=== PATIENT | female | born 1960 | race Caucasian/White ===

== ENCOUNTER 2024-11-25 12:57 | Outpatient (AMB) | payer MEDICARE, MEDICAID, SELFPAY ==
--- NOTE | 2024-11-25 13:15 | A.OFFVIS_ITS ---
Vital Signs 11/25/24 13:17 Height 4 ft 11 in Weight 220 lb BMI 44.4 BP 124/72 Intake Visit Reasons: New patient annual/DO NOT RS Intake Note: no concerns Hand Carver Required: No Information Interpreted: non-clinical & clinical Internal Grinding Machine Operator: Internal Grinding Machine Operator Present (Shilpa GREENWOOD) Accompanied by: Employee Allergies ibuprofen [From Advil] Allergy (Intermediate, Verified 11/25/24 13:22) Hives Post menopausal: Yes HPI Comments Details: Presenting for annual exam. No complaints. Last Pap/HPV was many years ago Last Mammogram was 3 months ago at [place] [facility] according to the patient that her caregiver, results were negative, no records available No previous screening Colonoscopy No previous DEXA scan PFSH Medical History (Updated 11/25/24 @ 13:58 by Marcial Mercedes MD) Hyperlipidemia Surgical History (Updated 11/25/24 @ 13:27 by Shilpa Thao CMA) Hx of breast biopsy Hx of right knee surgery Social History (Updated 11/25/24 @ 13:29 by Shilpa Thao CMA) Household Members: Caregiver Housing: House Alcohol intake: never Patient Tobacco Use Status: Never used Tobacco Current occupational status: disabled Sexually active: No Sexual orientation: Straight/Heterosexual Gender identity: Female Female Reproductive History Menstrual Menopause type: natural Total pregnancies: 0 Review of Systems Const All systems reviewed & are unremarkable except as noted in HPI and below Card Reports as per HPI Resp Reports as per HPI GI Reports as per HPI and Reports no additional complaints Reports as per HPI Physical Exam Vital Signs: Last Vital Signs BP 124/72 11/25/24 13:17 BMI result Body Mass Index 44.4 Const General: cooperative, healthy appearing and comfortable Chest Chest palpation & inspection: normal inspection of the chest and normal palpation of entire chest wall Breast/axilla inspection: normal inspection of the breasts and normal inspection of the axillae Breast/axilla palpation: normal palpation of the breasts, normal palpation of the axillae and no axillary lymphadenopathy Resp Effort & Inspection: normal respiratory effort Auscultation: clear to auscultation bilaterally Percussion: percussion normal Cardio Palpation: normal PMI Rate: regular rate Rhythm: regular rhythm Heart sounds: no murmurs and no rubs Peripheral pulses: Peripheral pulses 2+ throughout GI Inspection: Yes normal to inspection Palpation (GI): Soft to palpation, nontender, no guarding, not rigid and No hepatosplenomegaly present Percussion: Yes normal to percussion Auscultation: normal bowel sounds Rectal Exam - Female: deferred General: Yes bladder normal to palpation External Female Exam: lesion (Left labia majora lesion) Speculum Exam - Vagina: normal appearance of the vagina, normal palpation, normal vaginal discharge and not erythematous Speculum Exam - Cervix: normal appearance of the cervix and normal palpation Bimanual exam- vagina & uterus: normal bimanual exam, normal palpation, uterine size normal, bladder normal to palpation, consistency normal and normal palpation Bimanual Exam- Adnexa, other: normal adnexae, no masses and no tenderness Assessment & Plan Assessment & Plan (1) Well woman exam: Code(s): Z01.419 - Encounter for gynecological examination (general) (routine) without abnormal findings Category: Medical Plan: Co testing not indicated since the patient 's age is above 65 with no history of abnormal Pap smears last 25 years. Counseled the patient about the recommended dietary allowance of 1200 mg of Calcium & 800 IU of vitamin D. Instructions given the patient to schedule next screening Mammogram in 9 months and to send the previous mammogram report to our office. Referred her for screening colonoscopy done. Will order DEXA scan . The patient was instructed to perform monthly self-breast exams and to schedule a 2 week DEXA scan follow-up appointment and an annual exam in a year; All questions answered and the patient verbalized understanding. (2) Vulvar lesion: Comment: Left-sided Code(s): N90.89 - Other specified noninflammatory disorders of vulva and perineum Category: Medical Plan: Discussed with the patient the finding on pelvic exam left labia majora lesion, recommended biopsy. Instructions given to patient to schedule vulvar biopsy to rule out RAIZA. All questions answered, the patient verbalized understanding Orders: Orders XR DEXA axial skeleton Today Z78.0 - Asymptomatic menopausal state Referrals Gastroenterology Referral Z12.11 - Encounter for screening for malignant neoplasm of colon Coding Level of Care Code New Pt Prev Care >65yr (17441) Diagnoses Well woman exam Z01.419 Vulvar lesion N90.89
[2024-11-25 13:17] VITALS: BP 124/72; BMI 44.4
== END 2024-11-25 14:05 | disposition home or self-care (01) ==
PROVIDERS: PCP Internal Medicine; Referring Provider Obstetrics & Gynecology; Visit Provider Obstetrics & Gynecology
DX: Z01.419 Encounter for gynecological examination (general) (routine) without abnormal findings (principal); N90.89 Other specified noninflammatory disorders of vulva and perineum
CPT/HCPCS: G0101

== ENCOUNTER 2024-11-25 12:57 | Outpatient (REF) | payer MEDICARE, MEDICAID, SELFPAY ==
[2024-12-02 14:02] LABS: HPV Genotype 16 Negative (Negative); HPV Genotype 18 Negative (Negative); HPV High Risk Positive (Negative)
== END 2024-11-25 12:58 | disposition home or self-care (01) ==
LOC: HO.LNP 12:57
PROVIDERS: PCP Internal Medicine; Visit Provider Obstetrics & Gynecology
DX: Z01.419 Encounter for gynecological examination (general) (routine) without abnormal findings (principal); Z11.51 Encounter for screening for human papillomavirus (HPV); N90.89 Other specified noninflammatory disorders of vulva and perineum
CPT/HCPCS: 87626; 88175; G0101

== ENCOUNTER 2025-02-03 11:35 | Outpatient (AMB) | payer MEDICARE, MEDICAID, SELFPAY ==
--- NOTE | 2025-02-03 11:54 | MHC.AMNUTRGE ---
Intake Visit Reasons: Vulva Biopsy/colpo Allergies ibuprofen [From Advil] Allergy (Intermediate, Verified 02/03/25 11:55) Hives Nutrition BS Monitoring Most Recent Diabetes Results: No Access to Confidential Data PFSH Medical History (Updated 11/25/24 @ 13:58 by Marcial Mercedes MD) Hyperlipidemia Surgical History (Updated 11/25/24 @ 13:27 by Shilpa Thao CMA) Hx of breast biopsy Hx of right knee surgery Social History (Updated 11/25/24 @ 13:29 by Shilpa Thao CMA) Household Members: Caregiver Housing: House Alcohol intake: never Patient Tobacco Use Status: Never used Tobacco Current occupational status: disabled Sexual orientation: Straight/Heterosexual Gender identity: Female Coding
[2025-02-03 12:07] VITALS: BMI 44.4
--- NOTE | 2025-02-03 12:07 | A.OFFVIS_ITS ---
Vital Signs 02/03/25 12:07 Height 4 ft 11 in Weight 220 lb BMI 44.4 Intake Visit Reasons: Vulva Biopsy/colpo Route Delivery Supervisor Required: No Information Interpreted: non-clinical & clinical Resort Keeper: Resort Keeper Present (Shilpa GREENWOOD) Accompanied by: Self / Same As Patient Allergies ibuprofen [From Advil] Allergy (Intermediate, Verified 02/03/25 12:08) Hives HPI Comments Details: Presenting for vulvar biopsy PFSH Medical History (Updated 11/25/24 @ 13:58 by Marcial Mercedes MD) Hyperlipidemia Surgical History (Updated 11/25/24 @ 13:27 by Shilpa Thao CMA) Hx of breast biopsy Hx of right knee surgery Social History (Updated 11/25/24 @ 13:29 by Shilpa Thao CMA) Household Members: Caregiver Housing: House Alcohol intake: never Patient Tobacco Use Status: Never used Tobacco Current occupational status: disabled Sexual orientation: Straight/Heterosexual Gender identity: Female Physical Exam Vital Signs: BMI result Body Mass Index 44.4 Office 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 3 cc of lidocaine was used for anesthesia at the left vulvar lesion area ; using scissors and pickup the left vulvar lesion was biopsied. Pressure was used for h emostasis. The patient tolerated the procedure well. Discharge Instructions: The patient was instructed to schedule an appointment in 2 weeks for follow-up and to call if temp>100.4, area of the biopsy redness or pain, nausea/vomiting. This note was generated with a voice recognition program. Some errors may have been overlooked during the review of this note. Sometimes these errors may affect the content or meaning of a given sentence. [id number] of Vulva/Perineum Procedure code (CPT) selection complete Assessment & Plan Assessment & Plan (1) Vulvar lesion: Comment: Left-sided Code(s): N90.89 - Other specified noninflammatory disorders of vulva and perineum Category: Medical Plan: Left vulvar biopsy done, see procedure note Orders: Orders AMB ENTERPRISE SYSTEMS ADMINISTRATOR Biopsy Today N90.89 - Other specified noninflammatory disorders of vul va and perineum Coding Level of Care Code Procedure Only Diagnoses Vulvar lesion N90.89 CPT Codes ENTERPRISE SYSTEMS ADMINISTRATOR Biopsy - CPT: 61583-Mwlaqw of Vulva/Perineum ([id number])
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
== END 2025-02-03 12:30 | disposition home or self-care (01) ==
LOC: HO.HWS 11:35
PROVIDERS: PCP Internal Medicine; Visit Provider Obstetrics & Gynecology
DX: N90.89 Other specified noninflammatory disorders of vulva and perineum (principal)
CPT/HCPCS: 56605

== ENCOUNTER 2025-02-03 11:35 | Outpatient (REF) | payer MEDICARE, MEDICAID, SELFPAY | END 2025-02-03 11:36 | disposition home or self-care (01) | LOC: HO.LNP 11:35 | PROVIDERS: PCP Internal Medicine; Visit Provider Obstetrics & Gynecology | DX: N90.89 Other specified noninflammatory disorders of vulva and perineum (principal) | CPT/HCPCS: 56605; 88305; 88312 ==

== ENCOUNTER → 2025-02-10 15:00 | Outpatient (BNVA) | payer MEDICARE, MEDICAID, SELFPAY | PROVIDERS: PCP Internal Medicine; Visit Provider Obstetrics & Gynecology | DX: Z13.89 Encounter for screening for other disorder (principal) ==

== ENCOUNTER 2025-02-11 11:57 | Outpatient (AMB) | payer MEDICARE, MEDICAID, SELFPAY ==
--- NOTE | 2025-02-11 11:58 | A.OFFVIS_ITS ---
Intake Visit Reasons: biopsy results Allergies ibuprofen [From Advil] Allergy (Intermediate, Verified 02/03/25 12:08) Hives HPI Comments Details: The patient is scheduled a telehealth visit to for follow-up post vulvar biopsy which showed the following: Vulva, left, biopsy: Squamous hyperplasia with spongiosis and reactive changes; no atypia identified; no fungi seen PFSH Medical History Hyperlipidemia Surgical History Hx of breast biopsy Hx of right knee surgery Social History Household Members: Caregiver Housing: House Alcohol intake: never Patient Tobacco Use Status: Never used Tobacco Current occupational status: disabled Sexual orientation: Straight/Heterosexual Gender identity: Female Review of Systems Const All systems reviewed & are unremarkable except as noted in HPI and below Reports as per HPI and Reports no additional complaints GI Reports no additional complaints Reports no additional complaints Telehealth Telehealth Telehealth Platform: [employer] Location of provider rendering services: practice address Location of patient: address on file Patient Identification confirmed using: Name, : Yes Telehealth method: video Patient verbally consented to treatment: Yes Patient verbally consented to billing insurance company: Yes Patient informed of any privacy concerns related to visit: Yes Minutes spent on Phone/Video with Pt.: 2 Assessment & Plan Assessment & Plan (1) Squamous cell hyperplasia of vulva: Code(s): N90.69 - Other specified hypertrophy of vulva Category: Medical Plan: Discussed with the patient the results the pathology, risk of progression to cancer Counseled the patient on how to stop the ?itch-scratch cycle,? the following information were discussed with the patient regarding vulvar care and hygiene: Avoid baby wipes on anti-septic so but the fluid, scented toilet paper, condoms, contraceptive creams or gels, personal lubricant, nylon underwear, specific laundry detergents, shaving, latex products, sanitary products, soaps, oils, topical agent . In addition recommended to the patient to use the following: Mild soaps, avoiding it on the vulva, cleanse of out with water only, gently pat the vulva dry after bathing, fly preservative-free, unscented or fragrance free emollients to hold the moisture in the skin, use Trice care bottles to rinse after urination, with 100% cotton, and scented fragments free menstrual pads use adequate lubricant for intercourse. Will prescribe a medium-potency, Triamcinolone acetonide 0.1% cream to be used 1-2 times daily for 4 weeks and if it does not work, instructed the patient to call back will send the prescription for clobetasol 0.05%, a high-potency topical corticosteroid ointment , and oral antipruritic medication hydroxyzine 25 mg p.o. Q 6-8 p.r.n. Instructions given the patient to self inspect and to report any nonhealing ulcers or hard perineal areas. All questions answered, the patient verbalized understanding. I spent a total of 20 minutes reviewing the chart, talking to the patient via video and documenting in the medical record. Medications: New triamcinolone acetonide 0.1% Apply to the affected area twice a day for 4 weeks 1 appl topical BID 4 weeks 80 grams 0RF Coding Level of Care Code Tele Est Pt Level 3 (85319) Diagnoses Squamous cell hyperplasia of vulva N90.69
--- OUTSIDE RECORDS SUMMARY | 2025-02-11 14:06 | XMS_ITS | Clinical Summary ---
Author Organization [facility] Address [address] [place] [address] Phone Care Team Providers Care Legal Stenographer Name Role Phone Antonio Webb DO Primary Care Provider [phone] Allergies Active Allergy Reactions Criticality Noted Date [...] Type Department Care Team Description 02/03/2025 [address] [facility] [address] [facility] [address] [place] [address] Charly Logan MD pt needs labs before 04/09/25 TAVR f/u visit with [facility] 02/03/2025 Telephone [facility] [address] [facility] [address] [place] [address] Charly Logan MD ZioPatch - [phone] (Ok to Book) 01/22/2025 Telephone [facility] [address] [facility] [address] [place] [address] Antonio Webb, DO Medical Records 01/22/2025 Telephone [facility] [address] [facility] [address] [place] [phone] Antonio Webb, DO Medical Records 01/19/2025 9:40 AM EDT Office Visit [facility] [address] [place] [phone] Lidia Schroeder NP Severe aortic stenosis (Primary Dx) 12/29/2024 [address] [facility] [address] [place] [address] Antonio Webb, DO Medical Records 12/25/2024 Telephone [facility] - [address] [place] [phone] Marvel Ashley MD Appointment (Possible appointment ) 12/17/2024 9:30 AM EDT - 12/17/2024 10:30 AM EDT Surgery [facility] Cardiac Tank P[employer] [address] [place] [phone] Charly Logan MD Left heart cath [64151 (CPT??)] 12/17/2024 8:44 AM EDT - 12/17/2024 4:25 PM EDT Hospital Encounter [facility] Cardiac [facility] [address] [place] [phone] Charly Logan MD Severe aortic stenosis Discharge Disposition: Home-Health Care Svc 11/30/2024 Telephone [facility] Cardiology [facility] [address] [facility] [address] [place] [phone] Charly Logan MD from Last 3 Months Surgical History Surgery Date Site/Laterality Comments OTHER SURGICAL HISTORY PROCEDURE: ME HYSTEROSCOPY REMOVAL LEIOMYOMATA OTHER SURGICAL HISTORY PROCEDURE: ME DILATION & CURETTAGE DX&/THER NONOBSTETRIC KNEE SURGERY [...] on it as of July 2018. Through [facility] breast specialists. Allergic rhinitis 10/09/2018 DX:Allergic [...] :UTI (urinary tract infection) Colitis DX:Colitis Sepsis ([facility] V24, [facility] V28) DX:Sepsis ([facility]) Social History Tobacco Use Types Packs/Day [...] Description 02/18/2025 2:10 PM EDT Office Visit [facility] Cardiology [facility] [address] [facility] [address] [place] [phone] Jonathon Bowman NP [address] [place] [address] [address] [place] [address] 02/23/2025 8:00 AM EDT Ancillary Procedure [facility] Cardiology [facility] - [address] [place] [phone] 04/08/2025 10:00 AM EDT Office Visit [facility] Hematology Oncology [address] [place] [phone] Noah Trivedi MD [address] [place] [phone] 04/09/2025 3:40 PM EDT Office Visit [facility] [address] [place] [phone] Jonathon Bowman NP [address] [place] [address] [address] [place] [address] Health Maintenance Due Date Last Done Comments [...] this topic Medical Devices Implanted Type Area Rubber Thread Spooler Device Identifier Shelf Expiration Date Model / Serial / Lot System Perclose Proglide 6f - [id number] - [id number] Implanted:Qty: 1 on 12/17/2024 by Cahrly Logan MD at [facility] Vascular Closure Devices N/A: Groin [employer] [facility] [id number] 07/09/2026 [id number] / [id number] / [id number] Procedures Procedure Name Priority Date/Time Associated [...] AUTO DIFFERENTIAL Routine 12/01/2024 10:38 AM EDT LIPID PANEL WITH REFLEX TO DIRECT LDL Routine 11/10/2024 10:58 AM EST Hyperlipemia Myxedema heart disease from Last 3 Months or Most Recently Relevant to Health Maintenance Results * LEFT HEART CATH (12/17/2024 11:46 [...] of the right coronary artery with the Mobile catheter but eventually patient developed spasm and [...] management of aortic stenosis. Charly Logan MD [facility]. Marvel Ashley MD CV CARDIAC CATH PROCEDURES Final Result * (ABNORMAL) POCT venous basic metabolic profile, (12/17/2024 9:29 AM EDT) [facility] Glucose Venous POCT 104(H) 70 - 100 mg/dL 12/17/2024 10:23 AM [facility] Sodium Venous POCT 141 135 - 145 mmol/L 12/17/2024 10:23 AM [facility] Potassium Venous POCT 4.4 3.5 - 5.5 mmol/L 12/17/2024 10:23 AM [facility] Chloride Venous POCT 103 96 - 110 mmol/L 12/17/2024 10:23 AM [facility] TCO2 Venous POCT 27 21 - 32 mmol/L 12/17/2024 10:23 AM [facility] BUN Venous POCT 16 5 - 25 mg/dL 12/17/2024 10:23 AM EDT [facility] Creatinine Venous POCT 0.9 0.5 - 1.1 mg/dL 12/17/2024 10:23 AM EDT [facility] Ionized Calcium Venous POCT 4.60 4.50 - 5.30 mg/dL 12/17/2024 10:23 AM EDT [facility] Hemoglobin Venous POCT 12.6 11.5 - 16.0 g/dL 12/17/2024 10:23 AM EDT [facility] Hematocrit Venous POCT 37 35 - 47 % 12/17/2024 10:23 AM EDT [facility] Blood Venous blood specimen / Unknown 12/17/2024 9:29 AM EDT 12/17/2024 10:24 AM EDT us Charly Logan MD LAB POINT OF CARE TE ST DOCKED DEVICE UNSOLICITED RESULTS Final Result [facility] [address] [place] [address], [place] [phone] * ECG 12 lead - Procedural (No Charge) (12/17/2024 9:27 AM EDT) Ventricular Rate ECG 92 BPM GEMUSE Atrial Rate 92 BPM GEMUSE P-R Interval 142 ms GEMUSE QRS Duration 84 ms GEMUSE Q-T Interval 368 ms GEMUSE QTc 455 ms GEMUSE P Wave Tobias 59 degrees GEMUSE R Tobias -11 degrees GEMUSE T Tobias 132 degrees GEMUSE ECG Interpretation Normal sinus rhythm Left ventricular hypertrophy with repolarization abnormality Abnormal ECG When compared with ECG of 16-JAN-2022 17:26, T wave inversion now evident in Anterolateral leads Confirmed by MD Noland Christopher ([id number]) on 12/18/2024 1:16:39 AM GEMUSE 12/17/2024 9:27 AM EDT 12/18/2024 1:16 AM EDT us [...] AM EDT Performed at: ??01 - [facility] [address] ??[id number] Electricity Trader: Rosmery Carballo MD, Phone: ??[phone] us Carol Castro TRICOT KNITTER LAB BLOOD ORDERABLES Edited Re sult - [...] 11/10/2024 10:58 AM EST us Olive Garcia TRICOT KNITTER LAB BLOOD ORDERABLES Fi nal Result [facility] [address] [place] [address], [place] [phone] from Last 3 Months or Most Recently Relevant to Health Maintenance Insurance [place]ICA[place] - [place]ICARE Care Teams Legal Stenographer Relationship Specialty Start Date End Date Antonio Webb DO [address] [place] [phone] PCP - General Internal Medicine 01/31/22
== END 2025-02-11 12:29 | disposition home or self-care (01) ==
LOC: HO.HWS 11:57
PROVIDERS: PCP Internal Medicine; Visit Provider Obstetrics & Gynecology
DX: N90.69 Other specified hypertrophy of vulva (principal)
CPT/HCPCS: 99213

== ENCOUNTER → 2025-02-11 11:57 | Outpatient (BNVA) | payer MEDICARE, MEDICAID, SELFPAY | PROVIDERS: PCP Internal Medicine; Visit Provider Obstetrics & Gynecology | DX: Z13.89 Encounter for screening for other disorder (principal) ==

== ENCOUNTER 2025-02-26 12:27 | Outpatient (AMB) | payer MEDICARE, MEDICAID, SELFPAY ==
--- OUTSIDE RECORDS SUMMARY | 2025-02-26 12:29 | XMS_ITS | Clinical Summary ---
Author Organization [facility] Address [address] [place] [address] Phone Care Team Providers Care Snowsport Instructor Name Role Phone Antonio Webb DO Primary Care Provider [phone] Allergies Active Allergy Reactions Criticality Noted Date Comments Ibuprofen Other 07/14/2007 ibuprofen Tree Nuts 06/20/2022 Medications aspirin 81 mg [...] celecoxib (CeleBREX) 200 mg capsule 11/26/2024 Active acetaminophen (TYLENOL) 500 mg tablet Take 2 tablets (1,000 mg total) by mouth 2 (two) times a day. Active Hospital, Clinic, or Other Facility Administered Medication Ordered Dose Route Frequency Start Date End Date Status perflutren lipid microsphere (DEFINITY) 1.3 mL in sodium chloride 0.9% 8.7 mL injection 10 mL IV Once in imaging 02/24/2025 02/23/2025 End ed Active Problems Problem Noted Date Diagnosed Date Hyperlipidemia 02/19/2025 Assessment & Plan (02/19/2025 8:22 AM EDT): Continue with atorvastatin. Primary hypertension 02/19/2025 Assessment & Plan (02/19/2025 8:22 AM EDT): Diagnosis of hypertension, but controlled on no medications. Continue to monitor. S/P TAVR (transcatheter aortic valve replacement ) 10/23/2024 Overview (02/18/2025): February 2025- status post 29 mm Medtronic Bioprosthetic Valve February 2025- Echocardiogram showed bioprosthesis (#29 mm Evolut FX+ LESLI) in the aortic position, normally functioning on this study. Left ventricle is normal in size. LV systolic function is vigorous. Quantitative LVEF 69%. The basal inferior wall appears hypokinetic. The apex is poorly visualized. There is a small (0.8 x 0.5 cm) echodensity at the LV apex that is most likely trabeculation, however, cannot exclude LV thrombus given technically difficult image quality. Less likely thrombus in the setting of no clear apical wall motion abnormality/aneurysm. The mitral valve MG is moderately elevated, 7 mmHg at heart rate 89 bpm. The central venous pressure estimation is normal 3mmHg. Assessment & Plan (02/19/2025 8:21 AM EDT): >>ASSESSMENT AND PLAN FOR SEVERE AORTIC STENOSIS WRITTEN ON 01/19/2025 10:00 AM BY SANDIE NORTON NP The aortic valve leaflets exhibited severely reduced excursion, were heavily calcified with severe stenosis and mild to moderate regurgitation on transesophageal echocardiogram in October 2024. Symptoms are stable. She is pending consultation with CT surgeon Dr. Dodson on 01/22/25. Warning signs of progressive aortic stenosis: chest pain, shortness of breath, palpitations, dizziness, passing out or coming close to passing out. Assessment & Plan (02/19/2025 8:22 AM EDT): Successful TAVR using 29 mm Evolut Fx Bioprosthetic valve on 02/08/25. No intra or post operative complications. The patient is having symptomatic improvement following her TAVR. Her valve is working well on exam and by symptoms. Instructed her about the need for prophylactic antibiotics prior to dental work. She is scheduled for a one month TAVR echocardiogram and then one month TAVR follow up. Lymphadenopathy 06/20/2022 Encounters Date Type Department Care Team Description 02/23/2025 8:00 AM EDT Ancillary Procedure [facility] [address] [place] [phone] Nonrheumatic aortic valve stenosis 02/18/2025 2:10 PM EDT Office Visit [facility] [address] [facility] [address] [place] [phone] Jonathon Bowman NP S/P TAVR (transcatheter aortic valve replacement) (Primary Dx); Primary hypertension; Hyperlipidemia, unspecified hyperlipidemia type 02/03/2025 Telephone [facility] [address] [place] [phone] Charly Logan MD pt needs labs before 04/09/25 TAVR f/u visit with [facility] 02/03/2025 Telephone [facility] [address] [place] [address] Charly Logan MD ZioPatch - [phone] (Ok to Book) 01/22/2025 Telephone [facility] [address] [facility] [address] [place] [address] Antonio Webb, DO Medical Records 01/22/2025 Telephone [facility] [address] [facility] [address] [place] [address] Antonio Webb, DO Medical Records 01/19/2025 9:40 AM EDT Office Visit [facility] Cardiology [facility] [address] [place] [phone] Sandie Norton NP Severe aortic stenosis (Primary Dx) 12/29/2024 Telephone [facility] [address] [place] [phone] Antonio Webb DO Medical Records 12/25/2024 Telephone [facility] - [address] [place] [phone] Marvel Ashley MD Appointment (Possible appointment ) 12/17/2024 9:30 AM EDT - 12/17/2024 10:30 AM EDT Surgery [facility] Cardiac Music Video Producer [address] [place] [phone] Charly Logan MD Left heart cath [47027 (CPT )] 12/17/2024 8:44 AM EDT - 12/17/2024 4:25 PM EDT Hospital Encounter [facility] Cardiac [employer] [address] [place] [phone] Charly Logan MD Severe aortic stenosis Discharge Disposition: Home-Health Care [facility] 11/30/2024 Telephone [facility] [address] [place] [phone] Charly Logan MD from Last 3 Months Surgical History Surgery Date Site/Laterality Comments OTHER SURGICAL HISTORY PROCEDURE: NE HYSTEROSCOPY REMOVAL LEIOMYOMATA OTHER SURGICAL HISTORY PROCEDURE: NE DILATION & CURETTAGE DX&/THER NONOBSTETRIC KNEE SURGERY [...] on it as of July 2018. Through [facility] breast specialists. Allergic rhinitis 10/09/2018 DX:Allergic rh initis GERD (gastroesophageal reflux disease) DX:GERD (gastroesophageal reflux disease) Hyperlipidemia 10/09/2018 DX:Hyperlipidemi [...] :UTI (urinary tract infection) Colitis DX:Colitis Sepsis ([facility] V24, [facility] V28) DX:Sepsis ([facility]) Hypothyroidism Severe obesity (BMI 35.0-35. 9 with comorbidity) ([facility] V24, [facility] V28) Social History Tobacco Use Types Packs/Day Years [...] Sign Reading Time Taken Comments Blood Pressure 142/89 02/24/2025 9:22 AM EDT Pulse 93 02/18/2025 1:56 PM EDT Temperature 36.4 C (97.5 F) 12/17/2024 9:01 AM EDT Respiratory Rate 20 12/17/2024 3:59 PM EDT Oxygen Saturation 91% 02/18/2025 1:56 PM EDT Inhaled Oxygen Concentration - - Weight 96.2 kg (212 lb) 02/24/2025 9:22 AM EDT Height 149.9 cm (4' 11 ) 02/24/2025 9:22 AM EDT Body Mass Index 42.82 02/24/2025 9:22 AM EDT Plan of Treatment Upcoming Encounters Date Type Department Care Team (Late st Contact Info) Description 04/08/2025 10:00 AM EDT Office Visit [facility] Hematology Oncology [address] [place] [address] Noah Trivedi MD [address] [place] [address] 04/09/2025 3:40 PM EDT Office Visit [facility] Cardiology [facility] [address] [place] [address] Jonathon Bowman NP [address] [place] [address] [address] [place] [address] Health Maintenance Due Date Last Done Comments [...] this topic Medical Devices Implanted Type Area Search Engine Optimization Consultant Device Identifier Shelf Expiration Date Model / Serial / Lot System Perclose Proglide 6f - [id number] - [id number] Implanted:Qty: 1 on 12/17/2024 by Charly Logan MD at [facility] Vascular Closure Devices N/A: Groin [employer] [facility] [id number] 07/09/2026 [id number] / [id number] / [id number] Procedures Procedure Name Priority Date/Time Associated [...] of the right coronary artery with the [place] catheter but eventually patient developed spasm and [...] management of aortic stenosis. Charly Logan MD [facility]. Marvel Ashley MD CV CARDIAC CATH PROCEDURES Final Result * (ABNORMAL) POCT venous basic metabolic profile, (12/17/2024 9:29 AM EDT) [facility] Glucose Venous POCT 104(H) 70 - 100 mg/dL 12/17/2024 10:23 AM [facility] Sodium Venous POCT 141 135 - 145 mmol/L 12/17/2024 10:23 AM [facility] Potassium Venous POCT 4.4 3.5 - 5.5 mmol/L 12/17/2024 10:23 AM [facility] Chloride Venous POCT 103 96 - 110 mmol/L 12/17/2024 10:23 AM [facility] TCO2 Venous POCT 27 21 - 32 mmol/L 12/17/2024 10:23 AM [facility] BUN Venous POCT 16 5 - 25 mg/dL 12/17/2024 10:23 AM EDT [facility] Creatinine Venous POCT 0.9 0.5 - 1.1 mg/dL 12/17/2024 10:23 AM EDT [facility] Ionized Calcium Venous POCT 4.60 4.50 - 5.30 mg/dL 12/17/2024 10:23 AM EDT [facility] Hemoglobin Venous POCT 12.6 11.5 - 16.0 g/dL 12/17/2024 10:23 AM EDT [facility] Hematocrit Venous POCT 37 35 - 47 % 12/17/2024 10:23 AM EDT [facility] Blood Venous blood specimen / Unknown 12/17/2024 9:29 AM EDT 12/17/2024 10:24 AM EDT Charly Logan MD LAB POINT OF CARE TE ST DOCKED DEVICE UNSOLICITED RESULTS Final Result [facility] [address] [place] [address], * ECG 12 lead - Procedural (No Charge) (12/17/2024 9:27 AM EDT) Ventricular Rate ECG 92 BPM GEMUSE Atrial Rate 92 BPM GEMUSE P-R Interval 142 ms GEMUSE QRS Duration 84 ms GEMUSE Q-T Interval 368 ms GEMUSE QTc 455 ms GEMUSE P Wave Chamber[place] 59 degrees GEMUSE R [place] -11 degrees GEMUSE T [place] 132 degrees GEMUSE ECG Interpretation Normal sinus rhythm Left ventricular hypertrophy with repolarization abnormality Abnormal ECG When compared with ECG of 16-JAN-2022 17:26, T wave inversion now evident in Anterolateral leads Confirmed by MD Ludin, Orestes ([id number]) on 12/18/2024 1:16:39 AM GEMUSE 12/17/2024 9:27 [...] - 12/04/2024 2:06 AM EDT Performed at: 01 - [facility] [id number] Forestry Aide: Rosmery Carballo MD, Phone: [phone] us Carol Castro CHARGE NURSE LAB BLOOD ORDERABLES Edited Re sult - Final [facility] 1 * (ABNORMAL) Lipid panel with reflex to direct LDL (11/10/2024 10:58 AM EST) Cholesterol 177 0 - 200 mg/dL LAB CHEMISTRY METHOD 11/10/2024 3:40 PM EST [facility] Triglycerides 164(H) 0 - 150 mg/dL LAB CHEMISTRY METHOD 11/10/2024 3:40 PM EST [facility] HDL 42 >=40 mg/dL LAB CHEMISTRY METHOD 11/10/2024 3:40 PM EST [facility] LDL Calculated 102(H) 0 - 100 mg/dL LAB CHEMISTRY METHOD 11/10/2024 3:40 PM EST [facility] VLDL Cholesterol Lane 32.8 mg/dL LAB CHEMISTRY METHOD 11/10/2024 3:40 PM EST [facility] Non HDL Chol. (LDL+VLDL) 135 <145 mg/dL LAB CHEMISTRY METHOD 11/10/2024 3:40 PM EST [facility] Chol/HDL Ratio 4.2 0.0 - 4.4 LAB CHEMISTRY METHOD 11/10/2024 3:40 PM [facility] Blood Venous blood specimen / Unknown Venipuncture / Unknown 11/10/2024 10:58 AM EST 11/10/2024 10:58 AM EST us Olive Garcia CHARGE NURSE LAB BLOOD ORDERABLES Fi nal Result [facility] [address] [place] [address], from Last 3 Months or Most Recently Relevant to Health Maintenance Insurance [place] Care Teams Snowsport Instructor Relationship Specialty Start Date End Date Antonio Webb DO [address] [place] [phone] PCP - General Internal Medicine 01/31/22
--- NOTE | 2025-02-26 12:48 | MHC.OFFVIS ---
Vital Signs 02/26/25 12:50 Height 4 ft 11 in Weight 210 lb BMI 42.4 BP 140/66 H Blood Pressure Location Lt brachial Position Sitting Pulse 102 H Pulse Oximetry (%) 95 Oxygen Delivery Method Room Air Intake Visit Reasons: colo screen Intake Note: Patient new consult for 1st pre Colonoscopy screening. Patient cc: swllowing problems with sticky food as rice on and off. Denies any other GI issues for today. Salvage Inspector Required: No Accompanied by: Family/Other Allergies ibuprofen (From Advil) Allergy (Intermediate, Verified 02/26/25 12:48) Hives Medication List - Last Reconciled 02/26/25 by Anne Osorio CNP acetaminophen 1,000 mg PO Q12H aspirin 81 mg PO DAILY atorvastatin 20 mg PO DAILY bisacodyl 5 mg PO ONCE 1 day calcium carbonate-vitamin D3 600 mg-20 mcg (800 unit) 1 tab PO BID fluoxetine 20 mg PO DAILY ketoconazole 2% appl topical BID levothyroxine 75 mcg PO DAILY multivitamin with folic acid 400 mcg (Daily-Marlene (with folic acid)) 1 tab PO DAILY pantoprazole 40 mg PO DAILY polyethylene glycol 3350 (Miralax) 238 grams PO ONCE triamcinolone acetonide 0.1% 1 appl topical BID 4 weeks HPI HPI colo screen: Details: Patient is a 64-year-old female with PMH of developmental delay and hyperlipidemia. Referred by PCP for pre colonoscopy screening. Patient is accompanied by her home care chaplain. Past colonoscopy history is unknown. She reports daily BMs without difficultly,including no constipation or diarrhea. She denies any upper GI symptoms. They reports recent caridac procedure whats sounds like a cardiac cath. States she follows with [facility]. Patient denies: fever/chills, n/v, appetite changes, pyrosis, regurgitation,dysphasia, unintentional wt loss, ab pain or melena/hematochezia. [facility] Medical History (Updated 02/26/25 @ 13:18 by Anne Osorio CNP) Colon cancer screening Hyperlipidemia Surgical History Hx of breast biopsy Hx of right knee surgery Social History Household Members: Caregiver Housing: House Alcohol intake: never Patient Tobacco Use Status: Never used Tobacco Current occupational status: disabled Sexual orientation: Straight/Heterosexual Gender identity: Female Review of Systems Const Reports as per HPI ENT Reports as per HPI Card Reports as per HPI Resp Reports as per HPI GI Reports as per HPI Reports as per HPI Physical Exam Vital Signs: Last Vital Signs Pulse 102 H 02/26/25 12:50 BP 140/66 H 02/26/25 12:50 Pulse Ox 95 02/26/25 12:50 Oxygen Delivery Method Room Air 02/26/25 12:50 BMI result Body Mass Index 42.4 Const General: healthy appearing, no acute distress and well developed Nutritional Appearance: well nourished Orientation/consciousness: patient oriented x3 HEENT Head: Yes normal to inspection, Yes normocephalic and Yes atraumatic Face and sinus: Yes normal facial exam Eyes General: appearance normal, both eyes and all related structures Neck Neck: Yes normal visual inspection Resp Effort & Inspection: normal respiratory effort, able to speak in complete sentences, no tracheal deviation and symmetric chest movement Auscultation: clear to auscultation bilaterally Cardio Jugular venous distension: no JVD Rate: regular rate Rhythm: regular rhythm Heart sounds: S1 normal heart sound present, S2 normal heart sound present, no gallops and no murmurs GI Inspection: Yes normal to inspection, No distended and Yes obesity Palpation (GI): Soft to palpation, not firm, nontender and No hepatosplenomegaly present Auscultation: normal bowel sounds Neuro General: patient oriented x3 Gait exam (Neuro): Normal gait present Psych Appearance: grossly normal Mental Status: mental status grossly normal Speech and movement: Normal speech and movement present Affect: normal affect Attitude: cooperative Thought process: Normal thought process present Thought content: Normal thought content present Insight: Fair insight present (Psych) Judgement: Fair judgement present (Psych) Assessment & Plan Assessment & Plan (1) Colon cancer screening: Code(s): Z12.11 - Encounter for screening for malignant neoplasm of colon Category: Medical Plan: Due for screening colonoscopy. Previous screening unknown. No alarm features Medications: -prescriptions for laxative tablets and MiraLax sent to pharmacy; instructions for Gatorade purchase and clear liquid diet given. - understands to hold ASA 7 days prior to procedure. Understands that cardiology clearance will be needed. Used Car Sales Supervisor to provide us with name of utilities operator Patient educated on scheduling process, procedure preparation, including avoiding certain foods and ensuring clear liquid intake Advised on necessity for ride post-procedure due to sedation. Plan Follow-up after colonoscopy as needed Time: I spent a total of 20 minutes on the date of encounter which includes: Preparing to see the patient (reviewed previous documentation, test results and medical history) Performing a medically appropriate exam and/or evaluation Ordering medications, tests, and procedures Documenting clinical information in the health record Medications: New bisacodyl Take four tablets once for 1 day per colonoscopy instructions 5 mg PO ONCE 4 tabs 0RF 1 day polyethylene glycol 3350 (Miralax) per colonoscopy prep instructions 238 grams PO ONCE 238 grams 0RF Coding Level of Care Code New Pt New Pt Level 3 (40094) Patient Type New Diagnoses Colon cancer screening Z12.11
[2025-02-26 12:50] VITALS: BP 140/66; PULSE 102; O2SAT 95; BMI 42.4
== END 2025-02-26 13:38 | disposition home or self-care (01) ==
LOC: HO.HGI 12:28
PROVIDERS: PCP Internal Medicine; Visit Provider Nurse Practitioner Family
DX: Z12.11 Encounter for screening for malignant neoplasm of colon (principal)
CPT/HCPCS: 99024

== ENCOUNTER → 2025-02-26 12:27 | Outpatient (BNVA) | payer MEDICARE, MEDICAID, SELFPAY | PROVIDERS: PCP Internal Medicine; Visit Provider Nurse Practitioner Family | DX: Z12.11 Encounter for screening for malignant neoplasm of colon (principal) | CPT/HCPCS: 99212 ==